=== PATIENT | female | born 1980 | race Caucasian/White ===

== ENCOUNTER 2016-07-04 14:31 | Emergency (ER) | payer MEDICAID, OTHER ==
[~2016-07-04] VITALS: Ht 162.6 cm; Wt 52.2 kg
[2016-07-04 15:00] LABS: *URINE HCG, QUAL NEGATIVE (NEGATIVE)
[2016-07-04] MEDS ORDERED: MAGNESIUM CITRATE 296 ML BOTTLE PO ONE (15:15)
[2016-07-04] MEDS ORDERED: MAGNESIUM HYDROXIDE 30 ML LIQUID UDC PO ONE (15:15)
[2016-07-04] MEDS ORDERED: MAGNESIUM HYDROXIDE 30 ML LIQUID UDC ONE (15:27)
[2016-07-04] MEDS ORDERED: MAGNESIUM CITRATE 296 ML BOTTLE ONE (15:27)
--- NOTE | 2016-07-04 15:31 | NUR ---
Patient discharged to home in stable conditon. Written and verbal after care instructions given. Patient verbalizes understanding of instructions.PT ACCOMPANIED BY SO
[2016-07-04 15:32] VITALS: BP 129/91
== END 2016-07-04 15:34 | disposition home or self-care (01) ==
LOC: ER 14:31
DX: K59.00 Constipation, unspecified (principal); F17.200 Nicotine dependence, unspecified, uncomplicated
CPT/HCPCS: 74000; 84703; A4663

== ENCOUNTER 2016-07-30 16:33 | Emergency (ER) | payer OTHER ==
[~2016-07-30] VITALS: Ht 162.6 cm; Wt 54.4 kg
--- NOTE | 2016-07-30 17:21 | NUR ---
DR DAVIES AT THE BEDSIDE FOR EVAL AND EXAM.
[2016-07-30] MEDS ORDERED: VANCOMYCIN IV 1,000 MG in IV DEXTROSE 5% 250 ML IV ONE (17:30)
[2016-07-30] MEDS ORDERED: PIPERACILLIN SODIUM/TAZOBACTAM 3.375 G in IV DEXTROSE 5% 50 ML IV ONE (17:30)
[2016-07-30] MEDS ORDERED: KETOROLAC TROMETHAMINE 30 MG INJ ONE (17:59)
[2016-07-30] MEDS ORDERED: KETOROLAC TROMETHAMINE 30 MG INJ IVP ONE (18:00)
[2016-07-30] MEDS ORDERED: PIPERACILLIN SODIUM/TAZO 3.375 GM VIAL ONE (18:00)
[2016-07-30] MEDS ORDERED: VANCOMYCIN IV 200 ML ONE (18:00)
[2016-07-30] MEDS ORDERED: PIPERACILLIN/TAZOBACTAM/D5W 50 ML IV ONE (18:01)
[2016-07-30] MEDS ORDERED: MORPHINE SULFATE 2 MG/1 ML DISP.SYRIN IV ONE (18:15)
[2016-07-30] MEDS ORDERED: ONDANSETRON 4 MG/2 ML VIAL IV ONE (18:15)
[2016-07-30] MEDS ORDERED: ONDANSETRON 4 MG/2 ML VIAL ONE (18:27)
[2016-07-30] MEDS ORDERED: MORPHINE SULFATE 2 MG/1 ML DISP.SYRIN ONE (18:27)
--- NOTE | 2016-07-30 19:00 | NUR ---
CARE ENDORSED BY DAYSHIFT NURSE, PT IN BED RESTING, NO RESP DISTRESS NOTED OR REPORTED UPON ASSESSMENT...
--- NOTE | 2016-07-30 20:07 | NUR ---
Patient discharged to home in stable conditon. Written and verbal after care instructions given. Patient verbalizes understanding of instructions. Pt walked out of ER unassisted with belongings and partner at side...
[2016-07-30 20:12] VITALS: BP 126/78
== END 2016-07-30 20:13 | disposition home or self-care (01) ==
LOC: ER 16:35
DX: L03.113 Cellulitis of right upper limb (principal); F17.200 Nicotine dependence, unspecified, uncomplicated; F11.10 Opioid abuse, uncomplicated; F12.10 Cannabis abuse, uncomplicated; F15.10 Other stimulant abuse, uncomplicated
CPT/HCPCS: A4663; J1885; J2270; J2405; J2543; J3370

== ENCOUNTER 2016-07-31 14:37 | Inpatient (IN) | payer OTHER ==
[~2016-07-31] VITALS: Ht 162.6 cm; Wt 56.2 kg
--- NOTE | 2016-07-31 15:18 | NUR ---
Patient is not in the room at this time- elope?. MD notified.
--- NOTE | 2016-07-31 15:21 | NUR ---
Patient is back in her room and said that she went out to smoke cigarrettes before the IV line was inserted. " NO smoking " was discussed with the patient for better healing of her wounds.
[2016-07-31] MEDS ORDERED: ONDANSETRON 4 MG/2 ML VIAL IV ONE (15:30)
[2016-07-31] MEDS ORDERED: IV NORMAL SALINE 1000 ML BAG IV ONE (15:30)
[2016-07-31] MEDS ORDERED: VANCOMYCIN IV 1,000 MG in IV DEXTROSE 5% 250 ML IV ONE (15:30)
[2016-07-31] MEDS ORDERED: HYDROMORPHONE 1 MG/1 ML DISP.SYRIN IV ONE (15:30)
[2016-07-31] MEDS ORDERED: HYDROMORPHONE 2 MG/1 ML DISP.SYRIN ONE (15:35)
[2016-07-31] MEDS ORDERED: ONDANSETRON 4 MG/2 ML VIAL ONE (15:35)
[2016-07-31] MEDS ORDERED: VANCOMYCIN IV 200 ML ONE (15:36)
--- NOTE | 2016-07-31 15:40 | NUR ---
"OK to use foot for IV line." per
--- NOTE | 2016-07-31 15:43 | NUR ---
weigher packing Gama is attempting IV line at this time.
--- NOTE | 2016-07-31 15:43 | NUR ---
Jamil talbert in [facility] - 07/31/16 at 1550 by CAMILLA Beulah Malloy will attempt at this time.
--- NOTE | 2016-07-31 16:01 | NUR ---
Patient does not want to be admitted-MD at bedside.
--- NOTE | 2016-07-31 16:05 | NUR ---
Patient is seen eating snacks with good appetite and tearful at times when her needs are not met (e.g. preferred IV sites, wanting to be admitted & not to be discharged from the hospital by our ER doctor). notified . "OK to go to floor pending labs." per Dr Dunlap.
[2016-07-31 16:25] LABS: BASOPHILS # (AUTO) 0.1 K/uL (0.0-8.0); BASOPHILS % (AUTO) 0.9 % (0.0-2.0); EOSINOPHILS # (AUTO) 0.3 K/uL (0.0-0.7); EOSINOPHILS % (AUTO) 3.3 % (0.0-7.0); HEMATOCRIT 36.4 % (37-47); HEMOGLOBIN 11.9 G/DL (12.0-16.0); MEAN CORPUSCULAR HEMOGLOBIN 27.7 UUG (27.0-31.0); MEAN CORPUSCULAR HGB CONC 33 g/dL (32.0-37.0); MEAN CORPUSCULAR VOLUME 84.4 FL (81.0-99.0); MONOCYTES # (AUTO) 0.9 K/UL (0.1-1.30); MONOCYTES % (AUTO) 9.8 % (0.0-11.0); NEUTROPHILS # (AUTO) 5.7 K/UL (1.8-8.9); PLATELET COUNT (AUTO) 293 K/UL (150-450); RED BLOOD CELL COUNT(AUTO) 4.31 MIL/UL (4.2-5.4); RED CELL DISTRIBUTION WIDTH 13.3 % (11.5-14.5)
[2016-07-31 16:27] LABS: CALCIUM 8.3 mg/dL (8.5-10.1); CREATININE 0.6 mg/dL (0.6-1.3); POTASSIUM 3.8 mmol/L (3.5-5.1)
--- NOTE | 2016-07-31 16:29 | NUR ---
Patient is resting comfortably on bed with eyes closed, pending admitting papers from ER registration staff Teo at this time. Patient is ready for transfer to 2nd floor.
[2016-07-31 16:37] LABS: EOSINOPHILS % (MANUAL) 4 % (0-8); LYMPHOCYTES % (MANUAL) 28 % (20-40); MONOCYTES % (MANUAL) 12 % (2-10)
[2016-07-31 16:38] LABS: BAND % (MANUAL) 6 % (0-10); NEUTROPHILS % (MANUAL) 50 % (42-75)
[2016-07-31 16:39] LABS: PLATELET ESTIMATE ADEQUATE
[2016-07-31 17:04] VITALS: BP 108/78
[2016-07-31] MEDS ORDERED: ACETAMINOPHEN 325 MG TABLET PO PRN (18:00)
[2016-07-31] MEDS ORDERED: ZOLPIDEM 5 MG TABLET PO PRN (18:00)
[2016-07-31] MEDS ORDERED: MAGNESIUM HYDROXIDE 30 ML LIQUID UDC PO PRN (18:00)
[2016-07-31] MEDS ORDERED: Z GUARD REMEDY PASTE 57 GM TUBE TOP PRN (18:00)
[2016-07-31] MEDS ORDERED: ONDANSETRON 4 MG/2 ML VIAL IV PRN (18:00)
--- NOTE | 2016-07-31 18:21 | NUR ---
ADMISSION PROTOCOL INITIATED, PT IN NO ACUTE DISTRESS, PAIN 8/10 IN RIGHT HAND. IV INTACT AND PATENT. PICTURES TAKEN, PT DOES NOT WANT TO CHANGE INTO GOWN, WANTS TO MD AWARE OF PTS ARRIVAL, SAW PT AND ORDERS PLACED. WILL FOLLOW THROUGH
[2016-07-31] MEDS: HYDROCODONE/APAP 5-325MG TABLET PO PRN (18:44)
--- NOTE | 2016-07-31 18:59 | NUR ---
PT STATING PAIN 10/10 IN RIGHT HAND. PT AGREED TO NORCO, PT TOOK IT AND STARTED CRYING AND SAID NEEDS SOMETHING STRONGER. EXPLAINED TO PT THAT IT NEEDS TIME TO TAKE EFFECT, PT REFUSING TO WAIT AND STATES IF DOES NOT GET ANYTHING STRONGER, PT WILL LEAVE. PT WANTS DILAUDID, CALLED DR AND DR SAID PT NEEDS TO WAIT 1 HR AND IF NOT EFFECTIVE THEN PT CAN HAVE MORPHINE 1MG. MADE PATIENT AWARE AND PT AGREED.
[2016-07-31 20:00] VITALS: BP 107/72
--- NOTE | 2016-07-31 20:00 | NUR ---
RECEIVED PATIENT AWAKE IN BED, CRYING AND C/O PAIN IN RIGHT HAND, RADIATING UP ARM. PATIENT NOTIFIED THAT SHE CAN HAVE MORPHINE 1MG IV PER PAIN. PATIENT STATING THAT THE "NORCO" THAT WAS PREVIOUSLY GIVEN WAS INEFFECTIVE. VSS. HEPLOCK INTACT AND NOTED TO RIGHT FOOT #20 GAUGE. NO RESP. DISTRESS NOTED. CALL LIGHT IN REACH. ALL NEEDS ATTENDED. WILL CONTINUE TO MONITOR.
--- NOTE | 2016-07-31 20:20 | NUR ---
PATIENT GIVEN MORPHINE 1MG IV PER COMMUNITY COORDINATOR. VSS. WILL CONTINUE TO MONITOR.
[2016-07-31] MEDS: MORPHINE SULFATE 2 MG/1 ML DISP.SYRIN IV PRN (20:21)
--- NOTE | 2016-07-31 21:00 | NUR ---
MORPHINE EFFECTIVE. ALL NEEDS ATTENDED. WILL CONTINUE TO MONITOR.
[2016-07-31] MEDS: CLINDAMYCIN PHOSPHATE IV 900 MG in IV DEXTROSE 5% 100 ML IV SCH (21:53)
[2016-08-01] MEDS: MORPHINE SULFATE 2 MG/1 ML DISP.SYRIN IV PRN ×3 (00:18→08:05)
--- NOTE | 2016-08-01 00:20 | NUR ---
PATIENT AWAKE IN BED. C/O PAIN. PATIENT GIVEN MORPHINE 1MG IV PER ALTERATION HAND. VSS. WILL CONTINUE TO MONITOR.
--- NOTE | 2016-08-01 00:50 | NUR ---
PATIENT AWAKE IN BED, CRYING STATING THAT THE MORPHINE ISN'T WORKING. PATIENT ASKING FOR NORCO. INFORMED PATIENT THAT PAIN MEDICATION WAS JUST GIVEN RECENTLY AND NEEDS TO WAIT A LITTLE TIME FOR THE NORCO TO BE GIVEN. INFORMED PATIENT THAT I WOULD BE BACK AT 0130 TO GIVE NORCO. CONTRACTING ANALYST NOTIFIED.
--- NOTE | 2016-08-01 01:30 | NUR ---
ENTERED PATIENTS ROOM AND PATIENT ASLEEP. NO S/S OF ANY PAIN OR DISCOMFORT. NO FACIAL GRIMACING NOTED, WILL CONTINUE TO MONITOR.
--- NOTE | 2016-08-01 01:35 | NUR ---
PATIENT CALLED [facility] MAN LIGHT ASKING TO SPEAK WITH NURSE. PATIENT SITTING UP IN BED, VERY AGITATED. INFORMED PATIENT THAT NURSE CAME INTO ROOM 5 MINUTES AGO BUT SHE WAS ASLEEP. PATIENT BECAME EASILY AGITATED AND BECAME VERY HOSTILE. PATIENT THEN STARTED YELLING, "WHERE THE F%&K ARE THE DOCTORS AROUND HERE??" PATIENT THEN STARTED TO PUT IN HER SHOES STATING THAT SHE WILL JUST GO DOWNSTAIRS HERSELF TO GET MEDICATION FROM THE ER DOCTOR AND THAT EVERYONE IN THIS HOSPITAL IS UNETHICAL. INFORMED PATIENT THAT MD WOULD BE CALLED. PATIENT IS VERY HOSTILE, SCREAMING AT STAFF AND USING VERY INAPPROPRIATE LANGUAGE. ORTHOTICS PROSTHETICS TECHNICIAN AT BEDSIDE TO SPEAK WITH PATIENT. RN WOODEN BOX MAKER AWARE OF PATIENTS BEHAVIOR. WILL CONTINUE TO MONITOR.
--- NOTE | 2016-08-01 01:45 | NUR ---
CALLED OUT TO DR. DILL AIR CONDITIONING UNIT TESTER FOR FURTHERS ORDERS. NO NEW ORDERS GIVEN. ALL NEEDS ATTENDED.
--- NOTE | 2016-08-01 02:15 | NUR ---
PATIENT AWAKE IN BED. PATIENT EDUCATED AND GIVEN NORCO 1 TAB PO PRN FOR PAIN.
[2016-08-01] MEDS: HYDROCODONE/APAP 5-325MG TABLET PO PRN (02:18)
--- NOTE | 2016-08-01 02:30 | NUR ---
PATIENT STILL VERY UPSET AND AGITATED. PATIENT GIVEN SLEEPING PILL 5MG PO PRN. VSS. PATIENT THEN APOLOGIZED FOR "BEING RUDE" AND STATED, "IM SORRY I AM SUCH A BRAT." CLAIMS SORTER NOTIFIED. ALL NEEDS ATTENDED. WILL CONTINUE TO MONITOR AND ASSESS.
--- NOTE | 2016-08-01 03:07 | NUR ---
PATIENT ASLEEP IN BED. NO S/S OF PAIN OR DISCOMFORT. NO RESP. DISTRESS NOTED. WILL CONTINUE TO MONITOR.
--- NOTE | 2016-08-01 05:45 | NUR ---
PATIENT AWAKE IN BED, YELLING AT THE CHIEF LEGAL OFFICER. VERY HOSTILE TOWARDS STAFF.
[2016-08-01] MEDS: CLINDAMYCIN PHOSPHATE IV 900 MG in IV DEXTROSE 5% 100 ML IV SCH (05:54)
[2016-08-01 06:00] VITALS: BP 100/68
--- NOTE | 2016-08-01 06:30 | NUR ---
PATIENT RESTING IN BED. NO C/O PAIN AT THIS TIME. SLEPT AT SMALL INTERVALS. CALL LIGHT IN REACH. ALL NEEDS ATTENDED. WILL CONTINUE TO MONITOR.
[2016-08-01 07:02] LABS: BASOPHILS # (AUTO) 0.1 K/uL (0.0-8.0); BASOPHILS % (AUTO) 0.8 % (0.0-2.0); EOSINOPHILS # (AUTO) 0.3 K/uL (0.0-0.7); EOSINOPHILS % (AUTO) 4.3 % (0.0-7.0); HEMATOCRIT 37.2 % (37-47); HEMOGLOBIN 12.1 G/DL (12.0-16.0); LYMPHOCYTES # (AUTO) 2.3 K/UL (0.8-4.8); LYMPHOCYTES % (AUTO) 29.9 % (20.5-51.5); MEAN CORPUSCULAR HEMOGLOBIN 27.5 UUG (27.0-31.0); MEAN CORPUSCULAR HGB CONC 33 g/dL (32.0-37.0); MEAN CORPUSCULAR VOLUME 84.8 FL (81.0-99.0); MONOCYTES % (AUTO) 12.7 % (0.0-11.0); NEUTROPHILS # (AUTO) 3.8 K/UL (1.8-8.9); NEUTROPHILS % (AUTO) 52.3 % (38.5-71.5); PLATELET COUNT (AUTO) 310 K/UL (150-450); RED BLOOD CELL COUNT(AUTO) 4.39 MIL/UL (4.2-5.4); RED CELL DISTRIBUTION WIDTH 13.2 % (11.5-14.5); WHITE BLOOD COUNT (AUTO) 7.5 K/UL (4.0-11.2)
[2016-08-01 07:45] LABS: CALCIUM 8.7 mg/dL (8.5-10.1); CREATININE 0.8 mg/dL (0.6-1.3); MAGNESIUM 1.6 mg/dL (1.8-2.4); PHOSPHOROUS 5.2 mg/dL (2.5-4.9); POTASSIUM 4.2 mmol/L (3.5-5.1)
--- NOTE | 2016-08-01 07:58 | NUR ---
PATIENT RECEIVED IN ROOM RESTING ALERT AWAKE IN NO ACUTE DISTRESS. RESPIRATIONS EVEN AND UNLABORED. CALL LIGHT AT REACH.
--- NOTE | 2016-08-01 08:10 | NUR ---
PAIN MEDICATION GIVEN PRESCRIBED. ENCOURAGED PATIENT TO KEEP ARM ELEVATED ON PILLOWS, OFFERED WARM COMPRESS FOR COMFORT. PATIENT STATED SHE NEEDED MORE MEDICATION DUE TO MS NOT BEING EFFECTIVE AND THAT ALTHOUGH SURFACE PLATE FINISHER WAS ALREADY CALLED THAT SHE WANTED NOW ON CHARGE TO BE CALLED TOO.
--- NOTE | 2016-08-01 08:30 | NUR ---
DR. KUMARI NOTIFIED OF PATIENT C/O MS NOT BEING EFFECTIVE.
--- NOTE | 2016-08-01 09:10 | NUR ---
PATIENT WAS SEEN WALKING OUT THE UNIT. PATIENT TOOK ID BAND OFF AND IV WAS ON THE NIGHT STAND TABLE. DR. KUMARI NOTIFIED.
[2016-08-01 09:29] LABS: BAND % (MANUAL) 1 % (0-10); NEUTROPHILS % (MANUAL) 56 % (42-75)
[2016-08-01 09:30] LABS: EOSINOPHILS % (MANUAL) 3 % (0-8); LYMPHOCYTES % (MANUAL) 31 % (20-40); MONOCYTES % (MANUAL) 9 % (2-10); PLATELET ESTIMATE ADEQUATE
== END 2016-08-01 09:15 | disposition left against medical advice (07) | DRG 383 ==
LOC: ER 14:38 → MED 16:43
PROVIDERS: ADMIT Family Medicine; ATTEND Family Medicine
DX: L03.113 Cellulitis of right upper limb (principal); R56.9 Unspecified convulsions; F41.9 Anxiety disorder, unspecified; F17.210 Nicotine dependence, cigarettes, uncomplicated; Z59.0 Homelessness; F32.9 Major depressive disorder, single episode, unspecified
CPT/HCPCS: 36415; 83735; 84100; 85025; A4663; J1170; J2270; J2405; J3370; J3490; J7030; J7060

== ENCOUNTER 2016-09-13 07:41 | Emergency (ER) | payer OTHER ==
[~2016-09-13] VITALS: Ht 162.6 cm; Wt 52.2 kg
--- NOTE | 2016-09-13 08:15 | NUR ---
MSE COMPLETED, DRESSING PLACED TO RT UNDFERARM WOUND, PT D/C'D HOME ACI GIVEN. PT AMBULATED W/O DIFF/TOOK ALL BELONGINGS.
[2016-09-13 08:34] VITALS: BP 122/78
== END 2016-09-13 08:15 | disposition home or self-care (01) ==
LOC: ER 07:41
DX: Z48.01 Encounter for change or removal of surgical wound dressing (principal); F32.9 Major depressive disorder, single episode, unspecified; F41.9 Anxiety disorder, unspecified; F17.200 Nicotine dependence, unspecified, uncomplicated; F19.10 Other psychoactive substance abuse, uncomplicated
CPT/HCPCS: 99282; A4663

== ENCOUNTER 2016-11-02 02:05 | Emergency (ER) | payer OTHER ==
[~2016-11-02] VITALS: Ht 162.6 cm; Wt 53.5 kg
--- NOTE | 2016-11-02 02:16 | NUR ---
MSE DONE AT BEDSIDE BY DR GARCIA [id number].
--- NOTE | 2016-11-02 02:37 | NUR ---
Patient discharged to home in stable conditon. Written and verbal after care instructions given. Patient verbalizes understanding of instructions.
== END 2016-11-02 02:39 | disposition home or self-care (01) ==
LOC: ER 02:10
DX: L02.411 Cutaneous abscess of right axilla (principal); L03.111 Cellulitis of right axilla; F17.200 Nicotine dependence, unspecified, uncomplicated
CPT/HCPCS: A4663

== ENCOUNTER 2017-01-30 14:04 | Emergency (ER) | payer OTHER ==
[~2017-01-30] VITALS: Ht 160 cm; Wt 54.4 kg
--- NOTE | 2017-01-30 15:28 | NUR ---
Patient discharged to home in stable conditon. Written and verbal after care instructions given to patient. Patient verbalizes understanding of instructions.
== END 2017-01-30 15:29 | disposition home or self-care (01) ==
LOC: ER 14:07
DX: L98.499 Non-pressure chronic ulcer of skin of other sites with unspecified severity (principal); F17.200 Nicotine dependence, unspecified, uncomplicated; Z86.14 Personal history of Methicillin resistant Staphylococcus aureus infection
CPT/HCPCS: 99283; A4663

== ENCOUNTER 2017-02-03 21:15 | Emergency (ER) | payer OTHER ==
[~2017-02-03] VITALS: Ht 162.6 cm; Wt 54.4 kg
[2017-02-03] MEDS ORDERED: SULFAMETHOXAZOLE (21:58)
[2017-02-03] MEDS ORDERED: TRIMETHOPRIM (21:58)
--- NOTE | 2017-02-03 22:10 | NUR ---
md puente entered the room to assess the pt and the pt eloped.
--- NOTE | 2017-02-03 22:13 | NUR ---
Dr. Clarke requested I welding inspector during his MSE. Upon entering the room the pt flung open the curtain to the pt in the next bed. Dr. Clarke went to close it for pt privacy and pt sts agressively "That's my so it can stay open." Dr. Clarke then asked pt to show him the affected areas. As pt was rolling up her sleeves she sts "and its not fucking meth mites". As the exam continues the pt became more aggitated, restless and answering Dr. Clarke's questions curtly. Pt also demanded an additional antibiotic to the bactrim she is currently taking. Dr. Clarke cont to attempt to explain the process to her concerning taking antibiotics and pt interupts sts " it is life threatening. So great basically your saying Im not duran get anything. There's nothing to do. I'm leaving." Dr. Clarke attempted again to speak with pt calmly but pt cut him off and proceeded to speak with her . At which point they both got up and left. Pt loudly stating "fucking asshole" and slams open the ambulance bay doors.
== END 2017-02-03 22:10 | disposition left against medical advice (07) ==
LOC: ER 21:16
DX: Z53.21 Procedure and treatment not carried out due to patient leaving prior to being seen by health care provider (principal)
CPT/HCPCS: A4663

== ENCOUNTER 2024-06-21 06:02 | Emergency (ER) | payer OTHER ==
[~2024-06-21] VITALS: Ht 167.6 cm; Wt 72.6 kg
[~2024-06-21 06:02] MED LIST: SULFAMETHOXAZOLE; TRIMETHOPRIM
[2024-06-21] MEDS ORDERED: NEOMY/BACITRA/POLYMYXIN B OINT UD PACKET TP ONE (06:57)
[2024-06-21] MEDS ORDERED: TDAP DIPH,PERTUSS,TET VAC/PF 0.5 ML DISP.SYRIN IM ONE (06:57)
[2024-06-21] MEDS: NEOMY/BACITRA/POLYMYXIN B OINT UD PACKET TP ONE (07:00)
[2024-06-21] MEDS: SULFAMETH/TRIMETH 800/160 MG TABLET PO ONE (07:01)
[2024-06-21] MEDS ORDERED: SULFAMETH/TRIMETH 800/160 MG TABLET ONE (07:01)
[2024-06-21] MEDS ORDERED: SULF1TAB48 PO (07:11)
[2024-06-21] MEDS ORDERED: FLUC150T PO (07:11)
[2024-06-21] MEDS: TDAP DIPH,PERTUSS,TET VAC/PF 0.5 ML DISP.SYRIN IM ONE (07:19)
[2024-06-21 07:26] VITALS: BP 110/77; O2SAT 97
== END 2024-06-21 07:26 | disposition home or self-care (01) ==
LOC: ER 06:02
DX: T23.022A Burn of unspecified degree of single left finger (nail) except thumb, initial encounter (principal); T23.041A Burn of unspecified degree of multiple right fingers (nail), including thumb, initial encounter; F12.90 Cannabis use, unspecified, uncomplicated; F17.200 Nicotine dependence, unspecified, uncomplicated; F32.A Depression, unspecified; Z88.7 Allergy status to serum and vaccine; Z90.89 Acquired absence of other organs; X15.0XXA Contact with hot stove (kitchen), initial encounter; Y93.89 Activity, other specified; Y92.89 Other specified places as the place of occurrence of the external cause; Y99.8 Other external cause status
CPT/HCPCS: 90715; A4606; A4663

== ENCOUNTER 2024-10-04 19:02 | Inpatient (IN) | payer MEDICAID, OTHER ==
[~2024-10-04] VITALS: Ht 165.1 cm; Wt 75.8 kg
[~2024-10-04 19:02] MED LIST changes: +FLUC150T PO; +SULF1TAB48 PO; -SULFAMETHOXAZOLE; -TRIMETHOPRIM
[2024-10-04] MEDS ORDERED: CLINDAMYCIN 600 MG PIGGYBACK**ER OMNI IV ONE (20:03)
[2024-10-04 20:18] LABS: PLATELET COUNT (AUTO) 327 K/uL (179-408); RED BLOOD CELL COUNT(AUTO) 4.57 MIL/uL (3.63-4.92); RED CELL DISTRIBUTION WIDTH 13.3 % (12.3-17.7); WHITE BLOOD COUNT (AUTO) 9.2 K/uL (3.8-11.8)
[2024-10-04 20:21] LABS: CREATININE 0.6 mg/dL (0.6-1.3); SODIUM SERUM 136.0 mmol/L (136-145); UREA NITROGEN, BLOOD 9.0 mg/dL (7-18)
[2024-10-04] MEDS: CLINDAMYCIN PHOSPHATE IV 600 MG in IV DEXTROSE 5% 100 ML IV ONE (20:23)
[2024-10-04 20:26] LABS: ASPARTATE AMINOTRANSFERASE 13.0 U/L (15-37); TOTAL PROTEIN, SERUM 7.2 g/dL (6.4-8.2)
[2024-10-04] MEDS: IV NORMAL SALINE 1000 ML BAG IV ONE (20:36)
[2024-10-04 22:05] VITALS: BP 115/80; TEMP 98.3; O2SAT 97
[2024-10-04] MEDS ORDERED: ONDANSETRON 4 MG/2 ML VIAL IV PRN (22:15)
[2024-10-04] MEDS ORDERED: ACETAMINOPHEN 325 MG TABLET PO PRN (22:15)
[2024-10-05] MEDS ORDERED: CLINDAMYCIN 600 MG PIGGYBACK**ER OMNI IV ONE (05:31)
[2024-10-05] MEDS: CLINDAMYCIN PHOSPHATE IV 600 MG in IV DEXTROSE 5% 100 ML IV SCH (05:40)
[2024-10-05 06:06] VITALS: BP 97/62; TEMP 97.8; O2SAT 93
[2024-10-05 07:12] LABS: PLATELET COUNT (AUTO) 347 K/uL (179-408); RED BLOOD CELL COUNT(AUTO) 4.08 MIL/uL (3.63-4.92); RED CELL DISTRIBUTION WIDTH 13.3 % (12.3-17.7); WHITE BLOOD COUNT (AUTO) 6.5 K/uL (3.8-11.8)
[2024-10-05 07:14] LABS: CREATININE 0.6 mg/dL (0.6-1.3); SODIUM SERUM 141.0 mmol/L (136-145); UREA NITROGEN, BLOOD 6.0 mg/dL (7-18)
[2024-10-05] MEDS: ENOXAPARIN SODIUM 40 MG/0.4 ML DISP.SYRIN SQ SCH (09:45)
[2024-10-05 10:50] VITALS: BP 107/71; TEMP 97.8; O2SAT 96
[2024-10-05 16:05] VITALS: BP 100/70; TEMP 98.1; O2SAT 97
[2024-10-05 19:20] VITALS: BP 96/61; TEMP 98.4; O2SAT 93
[2024-10-06 05:11] VITALS: BP 105/60; TEMP 97.8; O2SAT 91
[2024-10-06] MEDS ORDERED: CLINDAMYCIN PHOSPHATE IV 600 MG in IV DEXTROSE 5% 50 ML IV SCH (07:06)
[2024-10-06 09:42] VITALS: O2SAT 95
[2024-10-06 12:00] VITALS: BP 98/60; TEMP 97.2; O2SAT 97
[2024-10-06] MEDS: CLINDAMYCIN PHOSPHATE IV 600 MG in IV DEXTROSE 5% 50 ML IV SCH (14:54)
[2024-10-06 16:00] VITALS: BP 96/61; TEMP 97.6; O2SAT 97
[2024-10-06 19:00] VITALS: BP 108/74; TEMP 97.7; O2SAT 97
[2024-10-06] MEDS: HYDROCODONE/APAP 5-325MG TABLET PO PRN (20:08)
== END 2024-10-06 22:13 | disposition left against medical advice (07) | DRG 383 ==
LOC: ER 19:05 → UNDOADMIN 21:15 → MEDSURG3 21:15
PROVIDERS: ADMIT Nurse Practitioner Acute Care; ATTEND Nurse Practitioner Acute Care
PROC: 05HC33Z Insertion of Infusion Device into Left Basilic Vein, Percutaneous Approach (ICD-10-PCS; principal; 2024-10-05)
DX: L03.115 Cellulitis of right lower limb (principal); E44.1 Mild protein-calorie malnutrition; E88.09 Other disorders of plasma-protein metabolism, not elsewhere classified; L97.812 Non-pressure chronic ulcer of other part of right lower leg with fat layer exposed; F19.10 Other psychoactive substance abuse, uncomplicated; Z53.29 Procedure and treatment not carried out because of patient's decision for other reasons; F17.210 Nicotine dependence, cigarettes, uncomplicated; F15.10 Other stimulant abuse, uncomplicated; R60.0 Localized edema
CPT/HCPCS: 36415; 83605; 83735; 84100; 85025; 85730; 86140; 87040; A4606; A4663; G0378; J1650; J3490; J7040

== ENCOUNTER 2025-02-09 22:35 | Emergency (ER) | payer OTHER ==
[~2025-02-09] VITALS: Ht 162.6 cm; Wt 68.0 kg
[2025-02-09 22:36] VITALS: BP 154/96
[2025-02-09] MEDS ORDERED: ONDANSETRON ODT 4 MG TAB.RAPDIS ONE (22:58)
[2025-02-09] MEDS: LORAZEPAM 0.5 MG TABLET PO ONE (22:59)
[2025-02-09] MEDS ORDERED: LORAZEPAM 0.5 MG TABLET ONE (22:59)
[2025-02-09] MEDS ORDERED: HYDROCODONE/APAP 10-325 MG TABLET ONE (22:59)
[2025-02-09] MEDS: ONDANSETRON ODT 4 MG TAB.RAPDIS SL ONE (23:00)
[2025-02-09] MEDS: HYDROCODONE/APAP 10-325 MG TABLET PO ONE (23:00)
[2025-02-09] MEDS ORDERED: HYDR-3980 PO (23:19)
[2025-02-09] MEDS ORDERED: CEPH500T PO (23:19)
[2025-02-09] MEDS ORDERED: FLUCONAZOLE 100 MG TABLET ONE (23:29)
[2025-02-09] MEDS: FLUCONAZOLE 100 MG TABLET PO ONE (23:31)
[2025-02-09 23:53] VITALS: BP 131/84; O2SAT 99
== END 2025-02-09 23:53 | disposition home or self-care (01) ==
LOC: ER 22:44
DX: S02.2XXA Fracture of nasal bones, initial encounter for closed fracture (principal); F17.210 Nicotine dependence, cigarettes, uncomplicated; F15.10 Other stimulant abuse, uncomplicated; F12.90 Cannabis use, unspecified, uncomplicated; F11.20 Opioid dependence, uncomplicated; B37.9 Candidiasis, unspecified; Z88.7 Allergy status to serum and vaccine; Z90.89 Acquired absence of other organs; Y04.0XXA Assault by unarmed brawl or fight, initial encounter; Y93.89 Activity, other specified; Y92.89 Other specified places as the place of occurrence of the external cause; Y99.9 Unspecified external cause status
CPT/HCPCS: Q0162